=== PATIENT | male | born 1950 | race Caucasian/White ===

== ENCOUNTER 2017-05-29 01:01 | Inpatient (IN) | payer OTHER ==
[2017-05-29] VITALS (8 sets, daily range): BP systolic 94–127; BP diastolic 50–85
[~2017-05-29] VITALS: Ht 193 cm; Wt 107.7 kg
[~2017-05-29 01:01] MED LIST: CETIRIZINE10 MG PO; DELTASONE20 M1 PO; FLUTICASON0.05 MG/Ac NAS; PROVENTIL0.09 MG/A1 INH
[2017-05-29 01:30] LABS: BASO % 0.4 % (0.0-1.0); EOS # 0.2 10*3/uL (0.0-0.4); EOS % 2.5 % (1.0-4.0); HEMATOCRIT 47.1 % (42.0-52.0); LYMPH # 1.4 10*3/uL (1.3-4.4); LYMPH % 18.4 % (27.0-41.0); MEAN CELL VOLUME 93.6 fl (80.0-94.0); MEAN CORPUSCULAR HGB 31.8 pg (27.0-31.0); MEAN PLATELET VOLUME 9.9 fl (9.6-12.3); MONO # 0.5 10*3/uL (0.1-1.0); NEUT # 5.4 10*3/uL (2.3-7.9); NEUT % 71.6 % (47.0-73.0); PLATELET COUNT AUTOMATED 182 10*3/uL (130-400); RED BLOOD COUNT 5.03 10*6/uL (4.50-5.90); RED CELL DISTRI WIDTH 13.5 % (0-14.5); WHITE BLOOD COUNT 7.6 10*3/uL (4.8-10.8)
[2017-05-29 01:49] LABS: ALBUMIN 3.4 gm/dl (3.1-4.5); ALKALINE PHOSPHATASE 98 U/L (45-117); BUN 25 mg/dl (7-24); CHLORIDE 108 mmol/L (98-107); CREATININE 1.22 mg/dL (0.70-1.30); MAGNESIUM 2.2 mg/dL (1.5-2.1); POTASSIUM 4.3 mmol/L (3.5-5.1); SGOT/AST 18 IU/L (3-35); SGPT/ALT 26 U/L (12-78); SODIUM 142 mmol/L (136-145); TOTAL PROTEIN 7.6 gm/dL (6.4-8.2); TROPONIN I < 0.015 ng/ml (<0.045)
--- NOTE | 2017-05-29 04:13 | NUR ---
PATIENT ARRIVED TO FLOOR FROM ER CO OF SHORTNESS OFBREATH AND A PRODUCTIVE COUGH. PATIENT ORIENTED TO ROOM AND CALL LIGHT/ DENIES ANY PAIN AT THIS TIME SEE SHIFT ASSESSMENT. MEDICATIONS REVIEWED WITH PATIENT AND ANOTHER RN AND SENT TO INTERNET SALESPERSON
--- NOTE | 2017-05-29 04:29 | NUR ---
CALLED DR RODRIGUEZ MADE HIM AWARE OF PATIENT BEING ADMITTED TO FLOOR AND MEDICATIONS ARE REVIEWED AND CORRECT
[2017-05-29 06:21] LABS: HEMATOCRIT 43.6 % (42.0-52.0); HEMOGLOBIN 14.7 g/dl (14.0-18.0); MEAN CELL VOLUME 94.8 fl (80.0-94.0); MEAN CORPUSCULAR HGB CONC 33.7 g/dl (33.0-37.0); MEAN PLATELET VOLUME 9.9 fl (9.6-12.3); PLATELET COUNT AUTOMATED 170 10*3/uL (130-400); RED CELL DISTRI WIDTH 13.5 % (0-14.5); WHITE BLOOD COUNT 6.1 10*3/uL (4.8-10.8)
[2017-05-29 06:43] LABS: ACT PARTIAL THROMBO TIME 23.3 SECONDS (20.8-31.5)
[2017-05-29 06:53] LABS: ALBUMIN 3.3 gm/dl (3.1-4.5); ALKALINE PHOSPHATASE 86 U/L (45-117); BUN 23 mg/dl (7-24); CHLORIDE 109 mmol/L (98-107); CHOLESTEROL 123 mg/dL (<200); CREATININE 1.16 mg/dL (0.70-1.30); FREE T4 1.09 ng/dl (0.76-1.46); HDL CHOLESTEROL 38 mg/dl (40-60); LDL CHOLESTEROL 74 mg/dL (9-159); MAGNESIUM 2.1 mg/dL (1.5-2.1); PHOSPHOROUS 2.2 mg/dL (2.5-4.9); POTASSIUM 4.2 mmol/L (3.5-5.1); SGOT/AST 18 IU/L (3-35); SGPT/ALT 23 U/L (12-78); SODIUM 141 mmol/L (136-145); TOTAL PROTEIN 6.9 gm/dL (6.4-8.2); TRIGLYCERIDES 55 mg/dl (<150); VLDL CHOLESTEROL 11 mg/dL (6-40)
[2017-05-29 06:59] LABS: THYROID STIM HORMONE (HS) 0.426 uIU/ml (0.358-4.75)
[2017-05-29 07:05] LABS: TOTAL CELLS COUNTED 100 #CELLS
[2017-05-29 07:06] LABS: PLATELET SUFFICIENCY NORMAL (NORMAL)
[2017-05-29 08:03] LABS: VITAMIN D, 25-HYDROXY 18.1 ng/mL (30-100)
--- NOTE | 2017-05-29 08:30 | NUR ---
Patient resting quietly with no c/o discomfort. Respirations easy and regular. Vital signs stable. No overt distress. MOHSEN MCCABE R
--- NOTE | 2017-05-29 16:24 | NUR ---
[facility] MED[facility] CARDIZEM AND COUMADIN GIVEN.
[2017-05-30] VITALS: BP 105/66
[2017-05-30 06:00] VITALS: BP 105/66
[2017-05-30 08:00] VITALS: BP 114/74
[2017-05-30 14:00] VITALS: BP 119/94
[2017-05-30 16:00] VITALS: BP 116/66
--- NOTE | 2017-05-30 17:55 | NUR ---
ASSESSED FOR HOME O2 FOLLOWS: SAT 95% WITH 2L/M NC APPLIED HR 88 BP 116/74 SAT 92% AT REST ON RA, OFF O2 X 20 MINUTES SAT 88% RA DURING AMBULATION SAT 88% WITH 2L/M NC APPLIED DURING AMBULATION SAT 91-92% WITH 3L/M NC APPLIED DURING AMBULATION SAT 94% WITH 3L/M NC APPLIED DURING REST AFTER AMBULATION X 2-3 MIN. SAT 95% RA DURING RECOVERY (REST) HR 99 THEN 80, BP 128/96 PT WALKED ONE TOTAL LAP AROUND 5 E. SLIGHT SOB NOTED. RN NOTIFIED.
[2017-05-30 20:00] VITALS: BP 108/66
[2017-05-31] VITALS: BP 111/78
[2017-05-31 06:15] VITALS: BP 110/80
[2017-05-31 08:00] VITALS: BP 110/64
[2017-05-31] MEDS ORDERED: DILTIAZEM CD240 MG PO (11:29)
[2017-05-31] MEDS ORDERED: PREDNISONE10 MG PO (11:29)
[2017-05-31] MEDS ORDERED: LEVOFLOXACIN500 MG PO (11:29)
[2017-05-31] MEDS ORDERED: XARE20MG PO (11:29)
--- NOTE | 2017-05-31 12:14 | NUR ---
PATIENT TO BE DISCHARGED TO HOME.
--- NOTE | 2017-05-31 14:30 | NUR ---
PATIENT NOW CANNOT GO HOME BECAUSE HOME O2 CANNOT BE SET UP TILL TOMORROW.
--- NOTE | 2017-05-31 16:27 | NUR ---
DR. ROMERO AND KNITTING MACHINE FIXER HEAD AWARE OF AMA.
--- NOTE | 2017-05-31 16:27 | NUR ---
PATIENT NOW SIGNING AMA.
--- NOTE | 2017-05-31 17:14 | NUR ---
PATIENT RECIEVED D/C INSTRUCTIONS AND FLU SHOT BUT STILL LEFT AMA.
== END 2017-05-31 17:14 | disposition left against medical advice (07) | DRG 191 ==
LOC: ED 01:01 → 5E 02:47 → EDHOLD 02:47 → 5E 03:00
PROVIDERS: Emergency Medicine Emergency Medical Services; Hospitalist; ADMIT Internal Medicine
DX: J44.1 Chronic obstructive pulmonary disease with (acute) exacerbation (principal); E44.0 Moderate protein-calorie malnutrition; E87.8 Other disorders of electrolyte and fluid balance, not elsewhere classified; E83.39 Other disorders of phosphorus metabolism; I48.91 Unspecified atrial fibrillation; C61 Malignant neoplasm of prostate; J30.2 Other seasonal allergic rhinitis; Z79.899 Other long term (current) drug therapy; Z53.21 Procedure and treatment not carried out due to patient leaving prior to being seen by health care provider; R73.03 Prediabetes; Z68.28 Body mass index [BMI] 28.0-28.9, adult

== ENCOUNTER 2018-06-17 05:06 | Emergency (ER) | payer OTHER ==
[~2018-06-17] VITALS: Ht 193 cm; Wt 108.9 kg
--- NOTE | ~2018-06-17 | EKG ---
[place], [place] ELECTROCARDIOGRAM REPORT NAME: PILLO MURDOCK UNIT #: [id number] ROOM: DOCTOR: [facility] DRAFT REPORT BIRTHDATE: [birth year] [facility] Test Date: 2018-06-17 Test Time: 05:32:54 Pat Name: PILLO MURDOCK Department: Room: ER/MS Gender: M Program Management Manager: : [id number] Requested By: AMEYA YUNG Order Number: [id number] Reading MD: Zarina Fernandez MD Measurements Intervals [place] Rate: 120 P: CO: QRS: 153 QRSD: 150 T: -5 QT: 340 QTc: 481 Interpretive Statements Atrial fibrillation Ventricular premature complex RBBB and LPFB Electronically Signed On 06-19-2018 14:44:14 PDT by Zarina Fernandez MD CM:EKGRPT:ELECTROCARDIOGRAM REPORT [id number] AMEYA ESCAMILLA DRAFT REPORT AMEYA YUNG DO
[~2018-06-17 05:06] MED LIST changes: +DILTIAZEM CD240 MG PO; +LEVOFLOXACIN500 MG PO; +PREDNISONE10 MG PO; +XARE20MG PO
[2018-06-17 05:35] LABS: BASO % 0.4 % (0.0-1.0); EOS # 0.1 10*3/uL (0.0-0.4); EOS % 0.9 % (1.0-4.0); HEMATOCRIT 46.2 % (42.0-52.0); LYMPH # 1.1 10*3/uL (1.3-4.4); LYMPH % 16.5 % (27.0-41.0); MEAN CELL VOLUME 92.4 fl (80.0-94.0); MEAN CORPUSCULAR HGB CONC 34.6 g/dl (33.0-37.0); MEAN PLATELET VOLUME 9.4 fl (9.6-12.3); MONO # 0.4 10*3/uL (0.1-1.0); MONO % 6.3 % (3.0-9.0); NEUT % 75.3 % (47.0-73.0); PLATELET COUNT AUTOMATED 186 10*3/uL (130-400); RED CELL DISTRI WIDTH 13.3 % (0-14.5); WHITE BLOOD COUNT 6.7 10*3/uL (4.8-10.8)
[2018-06-17 05:57] LABS: ALBUMIN 3.6 gm/dl (3.1-4.5); ALKALINE PHOSPHATASE 76 U/L (45-117); BUN 26 mg/dl (7-24); CHLORIDE 108 mmol/L (98-107); CREATININE 1.29 mg/dL (0.70-1.30); POTASSIUM 3.7 mmol/L (3.5-5.1); SGOT/AST 15 IU/L (3-35); SGPT/ALT 17 U/L (12-78); SODIUM 142 mmol/L (136-145); TOTAL PROTEIN 7.1 gm/dL (6.4-8.2)
[2018-06-17 06:01] LABS: TROPONIN I < 0.015 ng/ml (<0.045)
[2018-06-17 06:04] LABS: ACT PARTIAL THROMBO TIME 22.1 SECONDS (20.8-31.5)
[2018-06-17] MEDS ORDERED: PREDNISONE50 MG PO (06:12)
[2018-06-17] MEDS ORDERED: LEVAQUIN750 M1 PO (06:12)
== END 2018-06-17 06:29 | disposition home or self-care (01) ==
LOC: ED 05:06
PROVIDERS: Student in an Organized Health Care Education/Training Program
DX: J44.1 Chronic obstructive pulmonary disease with (acute) exacerbation (principal); R73.03 Prediabetes; I48.91 Unspecified atrial fibrillation; Z87.891 Personal history of nicotine dependence

== ENCOUNTER 2019-09-06 03:20 | Emergency (ER) | payer MEDICARE ==
[~2019-09-06] VITALS: Wt 111.1 kg
[~2019-09-06 03:20] MED LIST changes: +LEVAQUIN750 M1 PO; +PREDNISONE50 MG PO
[2019-09-06 03:42] LABS: BASO % 0.3 % (0.0-1.0); EOS # 0.1 10*3/uL (0.0-0.4); HEMATOCRIT 48.2 % (42.0-52.0); LYMPH # 0.9 10*3/uL (1.3-4.4); LYMPH % 12.1 % (27.0-41.0); MEAN CORPUSCULAR HGB 31.9 pg (27.0-31.0); MEAN CORPUSCULAR HGB CONC 33.2 g/dl (33.0-37.0); MEAN PLATELET VOLUME 9.9 fl (9.6-12.3); MONO # 0.5 10*3/uL (0.1-1.0); MONO % 6.1 % (3.0-9.0); NEUT # 6.2 10*3/uL (2.3-7.9); NEUT % 80.2 % (47.0-73.0); PLATELET COUNT AUTOMATED 173 10*3/uL (130-400); RED BLOOD COUNT 5.02 10*6/uL (4.50-5.90); RED CELL DISTRI WIDTH 13.2 % (0-14.5); WHITE BLOOD COUNT 7.8 10*3/uL (4.8-10.8)
[2019-09-06 03:52] LABS: ACT PARTIAL THROMBO TIME 25.7 SECONDS (20.0-32.1); INTERNATIONAL NORM RATIO 0.9 (2.0-3.5)
[2019-09-06 04:03] LABS: ALBUMIN 3.8 gm/dl (3.1-4.5); ALKALINE PHOSPHATASE 72 U/L (45-117); BUN 31 mg/dl (7-24); CHLORIDE 111 mmol/L (98-107); CREATININE 1.21 mg/dL (0.70-1.30); SGOT/AST 9 IU/L (3-35); SGPT/ALT 18 U/L (12-78); SODIUM 141 mmol/L (136-145); TOTAL PROTEIN 6.9 gm/dL (6.4-8.2)
[2019-09-06 04:05] LABS: TROPONIN I < 0.015 ng/ml (<0.045)
[2019-09-06] MEDS ORDERED: 'zithromax250 MG PO (04:22)
[2019-09-06] MEDS ORDERED: MEDROL DOSEPAK4 MG PO (04:22)
== END 2019-09-06 04:38 | disposition home or self-care (01) ==
LOC: ED 03:20
PROVIDERS: Emergency Medicine
DX: J44.9 Chronic obstructive pulmonary disease, unspecified (principal); K21.9 Gastro-esophageal reflux disease without esophagitis; I48.91 Unspecified atrial fibrillation; F17.200 Nicotine dependence, unspecified, uncomplicated; Z79.2 Long term (current) use of antibiotics; Z79.899 Other long term (current) drug therapy

== ENCOUNTER 2019-10-16 07:02 | Emergency (ER) | payer MEDICARE ==
[~2019-10-16] VITALS: Ht 193 cm; Wt 106.6 kg
[~2019-10-16 07:02] MED LIST changes: +'zithromax250 MG PO; +MEDROL DOSEPAK4 MG PO
[2019-10-16 07:30] LABS: BASO % 0.1 % (0.0-1.0); EOS % 0.6 % (1.0-4.0); HEMATOCRIT 47.5 % (42.0-52.0); HEMOGLOBIN 15.8 g/dl (14.0-18.0); LYMPH % 14.6 % (27.0-41.0); MEAN CELL VOLUME 95.4 fl (80.0-94.0); MEAN CORPUSCULAR HGB 31.7 pg (27.0-31.0); MEAN CORPUSCULAR HGB CONC 33.3 g/dl (33.0-37.0); MEAN PLATELET VOLUME 9.5 fl (9.6-12.3); MONO # 0.6 10*3/uL (0.1-1.0); MONO % 8.2 % (3.0-9.0); NEUT # 5.1 10*3/uL (2.3-7.9); NEUT % 76.2 % (47.0-73.0); PLATELET COUNT AUTOMATED 163 10*3/uL (130-400); RED BLOOD COUNT 4.98 10*6/uL (4.50-5.90); RED CELL DISTRI WIDTH 13.6 % (0-14.5); WHITE BLOOD COUNT 6.7 10*3/uL (4.8-10.8)
[2019-10-16 07:41] LABS: ACT PARTIAL THROMBO TIME 27.1 SECONDS (20.0-32.1); INTERNATIONAL NORM RATIO 0.9 (2.0-3.5)
[2019-10-16] MEDS ORDERED: ECPIRIN325 MG PO (07:43)
[2019-10-16] MEDS ORDERED: CETIRIZINE HYDR10 MG PO (07:43)
[2019-10-16 07:46] LABS: ALBUMIN 3.7 gm/dl (3.1-4.5); ALKALINE PHOSPHATASE 91 U/L (45-117); BUN 19 mg/dl (7-24); CHLORIDE 108 mmol/L (98-107); CREATININE 1.18 mg/dL (0.70-1.30); SGOT/AST 10 IU/L (3-35); SGPT/ALT 23 U/L (12-78); SODIUM 140 mmol/L (136-145); TOTAL PROTEIN 7.2 gm/dL (6.4-8.2); TROPONIN I 0.017 ng/ml (<0.045)
[2019-10-16] MEDS ORDERED: ALLERGY RELIE15.8 ML NAS (07:46)
== END 2019-10-16 08:13 | disposition home or self-care (01) ==
LOC: ED 07:02
PROVIDERS: Emergency Medicine
DX: J44.9 Chronic obstructive pulmonary disease, unspecified (principal); I48.91 Unspecified atrial fibrillation; K21.9 Gastro-esophageal reflux disease without esophagitis; F17.200 Nicotine dependence, unspecified, uncomplicated; Z79.899 Other long term (current) drug therapy; Z79.82 Long term (current) use of aspirin; Z98.61 Coronary angioplasty status

== ENCOUNTER 2021-03-15 17:03 | Emergency (ER) | payer OTHER, MEDICARE ==
[~2021-03-15] VITALS: Ht 193 cm; Wt 106.6 kg
[~2021-03-15 17:03] MED LIST changes: +ALLERGY RELIE15.8 ML NAS; +CETIRIZINE HYDR10 MG PO; +ECPIRIN325 MG PO
[2021-03-15 18:27] LABS: BASO % 0.3 % (0.0-1.0); EOS % 0.3 % (1.0-4.0); HEMATOCRIT 42.6 % (42.0-52.0); LYMPH % 14.8 % (27.0-41.0); MEAN CORPUSCULAR HGB 31.3 pg (27.0-31.0); MEAN CORPUSCULAR HGB CONC 33.3 g/dl (33.0-37.0); MEAN PLATELET VOLUME 9.5 fl (9.6-12.3); MONO # 0.5 10*3/uL (0.1-1.0); MONO % 7.6 % (3.0-9.0); NEUT % 76.5 % (47.0-73.0); PLATELET COUNT AUTOMATED 185 10*3/uL (130-400); RED BLOOD COUNT 4.53 10*6/uL (4.50-5.90); RED CELL DISTRI WIDTH 13.9 % (0-14.5); WHITE BLOOD COUNT 6.6 10*3/uL (4.8-10.8)
[2021-03-15 18:46] LABS: ALBUMIN 3.5 gm/dl (3.1-4.5); BUN 19 mg/dl (7-24); CHLORIDE 109 mmol/L (98-107); CREATININE 1.16 mg/dL (0.70-1.30); POTASSIUM 3.7 mmol/L (3.5-5.1); SGOT/AST 9 IU/L (3-35); SODIUM 141 mmol/L (136-145)
[2021-03-15 18:50] LABS: ALKALINE PHOSPHATASE 61 U/L (45-117); SGPT/ALT 15 U/L (12-78); TOTAL PROTEIN 6.5 gm/dL (6.4-8.2); TROPONIN I 0.034 ng/ml (<0.045)
== END 2021-03-15 19:06 | disposition home or self-care (01) ==
LOC: ED 17:03
PROVIDERS: Emergency Medicine
DX: J20.9 Acute bronchitis, unspecified (principal); J44.0 Chronic obstructive pulmonary disease with (acute) lower respiratory infection; Z79.899 Other long term (current) drug therapy; Z79.82 Long term (current) use of aspirin; Z98.61 Coronary angioplasty status; Z87.891 Personal history of nicotine dependence

== ENCOUNTER 2021-05-22 10:43 | Emergency (ER) | payer OTHER ==
[~2021-05-22] VITALS: Ht 193 cm; Wt 106.6 kg
[2021-05-22 11:09] VITALS: BP 95/46
[2021-05-22 11:37] LABS: BASO % 0.4 % (0.0-1.0); EOS # 0.1 10*3/uL (0.0-0.4); EOS % 2.4 % (1.0-4.0); LYMPH # 1.1 10*3/uL (1.3-4.4); LYMPH % 20.9 % (27.0-41.0); MEAN CELL VOLUME 94.4 fl (80.0-94.0); MEAN CORPUSCULAR HGB 31.6 pg (27.0-31.0); MEAN CORPUSCULAR HGB CONC 33.5 g/dl (33.0-37.0); MEAN PLATELET VOLUME 9.3 fl (9.6-12.3); MONO # 0.4 10*3/uL (0.1-1.0); MONO % 7.5 % (3.0-9.0); NEUT # 3.7 10*3/uL (2.3-7.9); NEUT % 68.6 % (47.0-73.0); PLATELET COUNT AUTOMATED 203 10*3/uL (130-400); RED BLOOD COUNT 5.19 10*6/uL (4.50-5.90); RED CELL DISTRI WIDTH 13.5 % (0-14.5); WHITE BLOOD COUNT 5.3 10*3/uL (4.8-10.8)
[2021-05-22 11:49] LABS: ACT PARTIAL THROMBO TIME 26.7 SECONDS (20.0-32.1)
[2021-05-22 12:02] LABS: ALBUMIN 3.8 gm/dl (3.1-4.5); ALKALINE PHOSPHATASE 94 U/L (45-117); BUN 20 mg/dl (7-24); CHLORIDE 107 mmol/L (98-107); CREATININE 1.01 mg/dL (0.70-1.30); POTASSIUM 4.2 mmol/L (3.5-5.1); SGOT/AST 9 IU/L (3-35); SGPT/ALT 20 U/L (12-78); SODIUM 140 mmol/L (136-145); TOTAL PROTEIN 7.4 gm/dL (6.4-8.2)
[2021-05-22 12:08] LABS: TROPONIN I < 0.015 ng/ml (<0.045)
[2021-05-22 13:11] LABS: CHOLESTEROL 165 mg/dL (<200); LDL CHOLESTEROL 95 mg/dL (9-159); TRIGLYCERIDES 73 mg/dl (<150)
== END 2021-05-22 20:31 | disposition admitted as inpatient to this hospital (09) ==
LOC: ED 10:43 → EDHOLD 13:00 → ED 13:00
PROVIDERS: Emergency Medicine
DX: R20.0 Anesthesia of skin (principal); Z20.822 Contact with and (suspected) exposure to COVID-19; R42 Dizziness and giddiness; M62.81 Muscle weakness (generalized); I48.20 Chronic atrial fibrillation, unspecified; J44.1 Chronic obstructive pulmonary disease with (acute) exacerbation; Z85.46 Personal history of malignant neoplasm of prostate; Z79.82 Long term (current) use of aspirin; Z79.899 Other long term (current) drug therapy; Z87.891 Personal history of nicotine dependence

== ENCOUNTER 2021-08-15 14:54 | Emergency (ER) | payer OTHER ==
[~2021-08-15] VITALS: Wt 108.9 kg
[2021-08-15 16:10] LABS: BASO % 0.5 % (0.0-1.0); EOS # 0.1 10*3/uL (0.0-0.4); EOS % 2.5 % (1.0-4.0); LYMPH # 1.2 10*3/uL (1.3-4.4); LYMPH % 21.5 % (27.0-41.0); MEAN CELL VOLUME 93.5 fl (80.0-94.0); MEAN CORPUSCULAR HGB 31.7 pg (27.0-31.0); MEAN CORPUSCULAR HGB CONC 33.9 g/dl (33.0-37.0); MEAN PLATELET VOLUME 9.4 fl (9.6-12.3); MONO # 0.5 10*3/uL (0.1-1.0); MONO % 8.7 % (3.0-9.0); NEUT # 3.7 10*3/uL (2.3-7.9); NEUT % 66.3 % (47.0-73.0); PLATELET COUNT AUTOMATED 172 10*3/uL (130-400); RED BLOOD COUNT 4.92 10*6/uL (4.50-5.90); RED CELL DISTRI WIDTH 13.4 % (0-14.5); WHITE BLOOD COUNT 5.6 10*3/uL (4.8-10.8)
[2021-08-15 16:21] LABS: ACT PARTIAL THROMBO TIME 28.9 SECONDS (20.0-32.1); INTERNATIONAL NORM RATIO 1.1 (2.0-3.5)
[2021-08-15 16:28] LABS: ALBUMIN 3.3 gm/dl (3.1-4.5); ALKALINE PHOSPHATASE 83 U/L (45-117); BUN 20 mg/dl (7-24); CHLORIDE 110 mmol/L (98-107); CPK 96 U/L (39-308); CREATININE 1.11 mg/dL (0.70-1.30); POTASSIUM 4.3 mmol/L (3.5-5.1); SGOT/AST 12 IU/L (3-35); SGPT/ALT 21 U/L (12-78); SODIUM 142 mmol/L (136-145); TOTAL PROTEIN 6.7 gm/dL (6.4-8.2)
[2021-08-15] MEDS ORDERED: VIBRAMYCIN100 MG PO (17:36)
[2021-08-15] MEDS ORDERED: PREDNISONE20 M1 PO (17:36)
== END 2021-08-15 17:44 | disposition home or self-care (01) ==
LOC: ED 14:54
PROVIDERS: Emergency Medicine
DX: J44.1 Chronic obstructive pulmonary disease with (acute) exacerbation (principal); Z20.822 Contact with and (suspected) exposure to COVID-19; I10 Essential (primary) hypertension; E78.00 Pure hypercholesterolemia, unspecified; Z79.899 Other long term (current) drug therapy; Z79.82 Long term (current) use of aspirin; Z87.891 Personal history of nicotine dependence

== ENCOUNTER 2021-09-18 17:30 | Emergency (ER) | payer OTHER ==
[~2021-09-18] VITALS: Ht 193 cm; Wt 104.3 kg
[~2021-09-18 17:30] MED LIST changes: +PREDNISONE20 M1 PO; +VIBRAMYCIN100 MG PO
[2021-09-18 18:00] LABS: BASO % 0.2 % (0.0-1.0); HEMATOCRIT 46.4 % (42.0-52.0); LYMPH # 0.4 10*3/uL (1.3-4.4); LYMPH % 5.4 % (27.0-41.0); MEAN CORPUSCULAR HGB 31.7 pg (27.0-31.0); MEAN CORPUSCULAR HGB CONC 34.1 g/dl (33.0-37.0); MEAN PLATELET VOLUME 9.8 fl (9.6-12.3); MONO # 0.6 10*3/uL (0.1-1.0); MONO % 9.2 % (3.0-9.0); NEUT # 5.5 10*3/uL (2.3-7.9); NEUT % 84.7 % (47.0-73.0); PLATELET COUNT AUTOMATED 139 10*3/uL (130-400); RED BLOOD COUNT 4.99 10*6/uL (4.50-5.90); RED CELL DISTRI WIDTH 13.9 % (0-14.5); WHITE BLOOD COUNT 6.5 10*3/uL (4.8-10.8)
[2021-09-18 18:15] LABS: ALBUMIN 3.2 gm/dl (3.1-4.5); ALKALINE PHOSPHATASE 81 U/L (45-117); BUN 26 mg/dl (7-24); CHLORIDE 107 mmol/L (98-107); CREATININE 1.31 mg/dL (0.70-1.30); POTASSIUM 3.6 mmol/L (3.5-5.1); SGOT/AST 37 IU/L (3-35); SGPT/ALT 26 U/L (12-78); SODIUM 139 mmol/L (136-145)
== END 2021-09-18 21:21 | disposition home or self-care (01) ==
LOC: ED 17:30
PROVIDERS: Student in an Organized Health Care Education/Training Program
DX: N17.9 Acute kidney failure, unspecified (principal); R42 Dizziness and giddiness; R51.9 Headache, unspecified; J44.9 Chronic obstructive pulmonary disease, unspecified; K21.9 Gastro-esophageal reflux disease without esophagitis; I48.91 Unspecified atrial fibrillation; Z79.899 Other long term (current) drug therapy; Z79.82 Long term (current) use of aspirin; Z87.891 Personal history of nicotine dependence

== ENCOUNTER 2021-10-27 14:09 | Emergency (ER) | payer OTHER ==
[~2021-10-27] VITALS: Wt 104.3 kg
[2021-10-27] MEDS ORDERED: HYDROCODONE-AC1 EAC1 PO (15:25)
[2021-10-27] MEDS ORDERED: SILVADENE,SSD C50 GM T (15:25)
[2021-10-27] MEDS ORDERED: SEPTDS PO (15:25)
== END 2021-10-27 16:00 | disposition home or self-care (01) ==
LOC: ED 14:09
DX: T24.201A Burn of second degree of unspecified site of right lower limb, except ankle and foot, initial encounter (principal); Z87.891 Personal history of nicotine dependence; Z79.899 Other long term (current) drug therapy; Z79.82 Long term (current) use of aspirin; X12.XXXA Contact with other hot fluids, initial encounter; Y93.89 Activity, other specified; Y92.89 Other specified places as the place of occurrence of the external cause; Y99.8 Other external cause status

== ENCOUNTER 2022-01-23 04:17 | Emergency (ER) | payer OTHER ==
[~2022-01-23 04:17] MED LIST changes: +HYDROCODONE-AC1 EAC1 PO; +SEPTDS PO; +SILVADENE,SSD C50 GM T
[2022-01-23] MEDS ORDERED: STIOLTO RESPIMAT4 GM INH (04:42)
[2022-01-23] MEDS ORDERED: METOPROLOL TART75 MG PO (04:42)
[2022-01-23] MEDS ORDERED: LIPITOR40 MG PO (04:43)
[2022-01-23] MEDS ORDERED: ELIQUIS5 M1 PO (04:43)
[2022-01-23 05:41] LABS: ALKALINE PHOSPHATASE 88 U/L (45-117); BUN 20 mg/dl (7-24); CHLORIDE 108 mmol/L (98-107); LIPASE 47 U/L (73-393); POTASSIUM 3.7 mmol/L (3.5-5.1); SGOT/AST 8 IU/L (3-35); SGPT/ALT 19 U/L (12-78); SODIUM 139 mmol/L (136-145); TOTAL PROTEIN 6.2 gm/dL (6.4-8.2)
[2022-01-23 06:02] LABS: BASO % 0.4 % (0.0-1.0); EOS # 0.1 10*3/uL (0.0-0.4); EOS % 1.8 % (1.0-4.0); HEMATOCRIT 41.8 % (42.0-52.0); LYMPH # 0.8 10*3/uL (1.3-4.4); LYMPH % 13.6 % (27.0-41.0); MEAN CELL VOLUME 93.3 fl (80.0-94.0); MEAN CORPUSCULAR HGB CONC 33.3 g/dl (33.0-37.0); MEAN PLATELET VOLUME 10.3 fl (9.6-12.3); MONO # 0.5 10*3/uL (0.1-1.0); MONO % 8.3 % (3.0-9.0); NEUT # 4.3 10*3/uL (2.3-7.9); NEUT % 75.5 % (47.0-73.0); PLATELET COUNT AUTOMATED 143 10*3/uL (130-400); RED BLOOD COUNT 4.48 10*6/uL (4.50-5.90); RED CELL DISTRI WIDTH 13.7 % (0-14.5); WHITE BLOOD COUNT 5.7 10*3/uL (4.8-10.8)
[2022-01-23] MEDS ORDERED: AVPAK AZITHROM250 MG PO (08:07)
[2022-01-23] MEDS ORDERED: PREDNISONE50 MG PO (08:07)
== END 2022-01-23 08:08 | disposition home or self-care (01) ==
LOC: ED 04:17
PROVIDERS: Emergency Medicine
DX: J44.1 Chronic obstructive pulmonary disease with (acute) exacerbation (principal); I48.91 Unspecified atrial fibrillation; E78.00 Pure hypercholesterolemia, unspecified; Z79.899 Other long term (current) drug therapy; Z79.82 Long term (current) use of aspirin

== ENCOUNTER 2022-03-08 18:52 | Emergency (ER) | payer OTHER ==
[~2022-03-08 18:52] MED LIST changes: +AVPAK AZITHROM250 MG PO; +ELIQUIS5 M1 PO; +LIPITOR40 MG PO; +METOPROLOL TART75 MG PO; +STIOLTO RESPIMAT4 GM INH
[2022-03-08 19:50] LABS: BASO % 0.3 % (0.0-1.0); EOS # 0.2 10*3/uL (0.0-0.4); EOS % 3.1 % (1.0-4.0); LYMPH # 1.4 10*3/uL (1.3-4.4); LYMPH % 23.5 % (27.0-41.0); MEAN CELL VOLUME 91.5 fl (80.0-94.0); MEAN CORPUSCULAR HGB 31.4 pg (27.0-31.0); MEAN CORPUSCULAR HGB CONC 34.3 g/dl (33.0-37.0); MEAN PLATELET VOLUME 9.6 fl (9.6-12.3); MONO # 0.5 10*3/uL (0.1-1.0); MONO % 8.5 % (3.0-9.0); NEUT # 3.7 10*3/uL (2.3-7.9); NEUT % 64.4 % (47.0-73.0); PLATELET COUNT AUTOMATED 151 10*3/uL (130-400); RED BLOOD COUNT 4.81 10*6/uL (4.50-5.90); RED CELL DISTRI WIDTH 13.2 % (0-14.5); WHITE BLOOD COUNT 5.8 10*3/uL (4.8-10.8)
[2022-03-08 20:06] LABS: ALKALINE PHOSPHATASE 91 U/L (45-117); BUN 26 mg/dl (7-24); CHLORIDE 112 mmol/L (98-107); CREATININE 0.97 mg/dL (0.70-1.30); SGOT/AST 14 IU/L (3-35); SGPT/ALT 24 U/L (12-78); SODIUM 141 mmol/L (136-145); TOTAL PROTEIN 6.3 gm/dL (6.4-8.2)
== END 2022-03-08 23:01 | disposition home or self-care (01) ==
LOC: ED 18:52
PROVIDERS: Internal Medicine
DX: I95.1 Orthostatic hypotension (principal); N17.9 Acute kidney failure, unspecified; Z79.899 Other long term (current) drug therapy; Z79.82 Long term (current) use of aspirin; Z87.891 Personal history of nicotine dependence

== ENCOUNTER 2022-08-02 08:35 | Emergency (ER) | payer OTHER ==
[~2022-08-02] VITALS: Ht 193 cm; Wt 106.6 kg
[~2022-08-02 08:35] MED LIST changes: -SUNMARK MUCUS600 MG PO
[2022-08-02 09:47] LABS: BASO % 0.4 % (0.0-1.0); EOS # 0.1 10*3/uL (0.0-0.4); EOS % 1.4 % (1.0-4.0); HEMATOCRIT 42.8 % (42.0-52.0); LYMPH # 0.7 10*3/uL (1.3-4.4); LYMPH % 11.4 % (27.0-41.0); MEAN CELL VOLUME 97.1 fl (80.0-94.0); MEAN CORPUSCULAR HGB 31.7 pg (27.0-31.0); MEAN CORPUSCULAR HGB CONC 32.7 g/dl (33.0-37.0); MEAN PLATELET VOLUME 9.2 fl (9.6-12.3); MONO # 0.6 10*3/uL (0.1-1.0); MONO % 11.1 % (3.0-9.0); NEUT # 4.3 10*3/uL (2.3-7.9); NEUT % 75.3 % (47.0-73.0); PLATELET COUNT AUTOMATED 148 10*3/uL (130-400); RED BLOOD COUNT 4.41 10*6/uL (4.50-5.90); RED CELL DISTRI WIDTH 15.9 % (0-14.5); WHITE BLOOD COUNT 5.7 10*3/uL (4.8-10.8)
[2022-08-02 09:59] LABS: ACT PARTIAL THROMBO TIME 31.3 SECONDS (20.0-32.1)
[2022-08-02 10:18] LABS: ALKALINE PHOSPHATASE 100 U/L (45-117); BUN 17 mg/dl (7-24); CHLORIDE 110 mmol/L (98-107); CREATININE 0.89 mg/dL (0.70-1.30); LIPASE 60 U/L (73-393); POTASSIUM 3.6 mmol/L (3.5-5.1); SGPT/ALT 27 U/L (12-78); SODIUM 142 mmol/L (136-145)
[2022-08-02] MEDS ORDERED: SUNMARK MUCUS600 MG PO (11:43)
[2022-08-06] MEDS ORDERED: LEVOFLOXACIN750 M2 PO (13:35)
[2022-08-06] MEDS ORDERED: PREDNISONE50 MG PO (13:35)
[2022-08-06] MEDS ORDERED: PROVENTIL HFA6.7 GM INH (13:36)
== END 2022-08-02 13:17 | disposition home or self-care (01) ==
LOC: ED 08:35
PROVIDERS: Family Medicine
DX: T24.031A Burn of unspecified degree of right lower leg, initial encounter (principal); I89.0 Lymphedema, not elsewhere classified; L89.502 Pressure ulcer of unspecified ankle, stage 2; Z95.818 Presence of other cardiac implants and grafts; Z72.0 Tobacco use

== ENCOUNTER → 2022-08-02 | Outpatient (CLI) | payer MEDICARE ==
[~2022-08-02] MED LIST changes: +AMIODARONE HYD200 MG PO; +MUCINEX ER600 MG PO; +SUNMARK MUCUS600 MG PO; +VITAMIN D350 MC2 PO
== END ==
LOC: WOUNDCARE 14:01
PROVIDERS: ATTEND Nurse Practitioner Family
DX: Z53.21 Procedure and treatment not carried out due to patient leaving prior to being seen by health care provider (principal)

== ENCOUNTER → 2022-08-05 | Outpatient (CLI) | payer MEDICARE ==
[~2022-08-05] MED LIST changes: +LEVOFLOXACIN750 M2 PO; +PROVENTIL HFA6.7 GM INH; +SUNMARK MUCUS600 MG PO
== END ==
LOC: WOUNDCARE 01:38
PROVIDERS: ATTEND Nurse Practitioner Family
DX: Z53.21 Procedure and treatment not carried out due to patient leaving prior to being seen by health care provider (principal)

== ENCOUNTER → 2022-08-09 | Outpatient (CLI) | payer MEDICARE | END | disposition home or self-care (01) | LOC: WOUNDCARE 03:14 | PROVIDERS: ATTEND Nurse Practitioner Family | DX: L97.822 Non-pressure chronic ulcer of other part of left lower leg with fat layer exposed (principal); L89.323 Pressure ulcer of left buttock, stage 3; T24.301A Burn of third degree of unspecified site of right lower limb, except ankle and foot, initial encounter; T31.0 Burns involving less than 10% of body surface; I87.8 Other specified disorders of veins; I50.20 Unspecified systolic (congestive) heart failure; I73.9 Peripheral vascular disease, unspecified; X08.8XXA Exposure to other specified smoke, fire and flames, initial encounter; Y93.89 Activity, other specified; Y92.89 Other specified places as the place of occurrence of the external cause; Y99.8 Other external cause status ==

== ENCOUNTER 2022-12-11 15:26 | Emergency (ER) | payer OTHER ==
[~2022-12-11] VITALS: Ht 193 cm; Wt 108.9 kg
[2022-12-11] MEDS ORDERED: ZITHROMAX250 MG PO (18:26)
[2022-12-11] MEDS ORDERED: Ipratropium Brom3 ML INH (18:26)
[2022-12-11] MEDS ORDERED: PREDNISONE10 MG PO (18:26)
== END 2022-12-11 19:32 | disposition home or self-care (01) ==
LOC: ED 15:26
DX: J44.9 Chronic obstructive pulmonary disease, unspecified (principal); I48.91 Unspecified atrial fibrillation; Z86.73 Personal history of transient ischemic attack (TIA), and cerebral infarction without residual deficits; K21.9 Gastro-esophageal reflux disease without esophagitis; I50.9 Heart failure, unspecified; Z98.890 Other specified postprocedural states; F17.200 Nicotine dependence, unspecified, uncomplicated

== ENCOUNTER 2022-12-15 13:10 | Emergency (ER) | payer OTHER ==
[~2022-12-15] VITALS: Wt 108.9 kg
[~2022-12-15 13:10] MED LIST changes: +Ipratropium Brom3 ML INH; +ZITHROMAX250 MG PO
[2022-12-15 14:05] LABS: BASO % 0.5 % (0.0-1.0); EOS # 0.1 10*3/uL (0.0-0.4); HEMATOCRIT 40.5 % (42.0-52.0); LYMPH # 1.1 10*3/uL (1.3-4.4); MEAN CELL VOLUME 93.1 fl (80.0-94.0); MEAN CORPUSCULAR HGB 31.5 pg (27.0-31.0); MEAN CORPUSCULAR HGB CONC 33.8 g/dl (33.0-37.0); MEAN PLATELET VOLUME 9.1 fl (9.6-12.3); MONO # 0.5 10*3/uL (0.1-1.0); MONO % 7.2 % (3.0-9.0); NEUT # 4.9 10*3/uL (2.3-7.9); PLATELET COUNT AUTOMATED 228 10*3/uL (130-400); RED BLOOD COUNT 4.35 10*6/uL (4.50-5.90); RED CELL DISTRI WIDTH 14.4 % (0-14.5); WHITE BLOOD COUNT 6.6 10*3/uL (4.8-10.8)
[2022-12-15 14:28] LABS: ALKALINE PHOSPHATASE 62 U/L (46-116); BUN 20 mg/dl (9-23); CHLORIDE 107 mmol/L (98-107); POTASSIUM 3.9 mmol/L (3.4-5.1); SGPT/ALT 21 U/L (10-49)
[2022-12-17] MEDS ORDERED: METOPROLOL SUCC50 M1 PO (07:45)
[2022-12-17] MEDS ORDERED: CETIRIZINE10 MG PO (07:45)
[2022-12-17] MEDS ORDERED: LIPITOR80 MG PO (07:45)
[2022-12-17] MEDS ORDERED: STRIVERDI RESPIM4 GM INH (07:46)
[2022-12-17] MEDS ORDERED: PROVENTIL HFA6.7 GM INH (07:47)
[2022-12-17] MEDS ORDERED: CHILDREN'S FLO5.9 ML INH (07:47)
[2022-12-17] MEDS ORDERED: ALBUTEROL2.5 MG/0.5 INH (18:52)
[2022-12-18] MEDS ORDERED: METOPROLOL SUC100 M1 PO (08:26)
== END 2022-12-15 16:45 | disposition left against medical advice (07) ==
LOC: ED 13:10
PROVIDERS: Emergency Medicine
DX: J44.1 Chronic obstructive pulmonary disease with (acute) exacerbation (principal); Z79.899 Other long term (current) drug therapy; F17.200 Nicotine dependence, unspecified, uncomplicated

== ENCOUNTER 2023-07-10 13:08 | Emergency (ER) | payer OTHER ==
[~2023-07-10] VITALS: Wt 104.3 kg
[~2023-07-10 13:08] MED LIST changes: +ALBUTEROL2.5 MG/0.5 INH; +CHILDREN'S FLO5.9 ML INH; +LIPITOR80 MG PO; +METOPROLOL SUC100 M1 PO; +METOPROLOL SUCC50 M1 PO; +STRIVERDI RESPIM4 GM INH
[2023-07-10 14:00] LABS: BASO % 0.4 % (0.0-1.0); EOS % 0.4 % (1.0-4.0); HEMATOCRIT 44.7 % (42.0-52.0); LYMPH # 0.5 10*3/uL (1.3-4.4); LYMPH % 11.7 % (27.0-41.0); MEAN CELL VOLUME 93.1 fl (80.0-94.0); MEAN CORPUSCULAR HGB 31.7 pg (27.0-31.0); MEAN PLATELET VOLUME 8.9 fl (9.6-12.3); MONO # 0.7 10*3/uL (0.1-1.0); MONO % 16.1 % (3.0-9.0); NEUT # 3.3 10*3/uL (2.3-7.9); NEUT % 71.2 % (47.0-73.0); PLATELET COUNT AUTOMATED 166 10*3/uL (130-400); RED CELL DISTRI WIDTH 14.6 % (0-14.5); WHITE BLOOD COUNT 4.6 10*3/uL (4.8-10.8)
[2023-07-10 14:24] LABS: ALKALINE PHOSPHATASE 94 U/L (46-116); BUN 20 mg/dl (9-23); CHLORIDE 105 mmol/L (98-107); SGPT/ALT 17 U/L (5-49); TOTAL PROTEIN 6.4 gm/dL (6.0-8.0)
== END 2023-07-10 16:12 | disposition home or self-care (01) ==
LOC: ED 13:08
PROVIDERS: Emergency Medicine
DX: J44.1 Chronic obstructive pulmonary disease with (acute) exacerbation (principal); I50.9 Heart failure, unspecified; I11.0 Hypertensive heart disease with heart failure; I48.91 Unspecified atrial fibrillation; K21.9 Gastro-esophageal reflux disease without esophagitis; Z86.718 Personal history of other venous thrombosis and embolism; Z20.822 Contact with and (suspected) exposure to COVID-19; Z95.5 Presence of coronary angioplasty implant and graft; Z98.890 Other specified postprocedural states; F17.200 Nicotine dependence, unspecified, uncomplicated

== ENCOUNTER 2023-07-14 00:14 | Inpatient (IN) | payer OTHER ==
[2023-07-14] VITALS (7 sets, daily range): BP systolic 102–139; BP diastolic 63–78
[~2023-07-14] VITALS: Ht 193 cm; Wt 94.6 kg
[2023-07-14 00:36] LABS: BASO % 0.1 % (0.0-1.0); HEMATOCRIT 45.4 % (42.0-52.0); LYMPH # 0.5 10*3/uL (1.3-4.4); LYMPH % 6.1 % (27.0-41.0); MEAN CELL VOLUME 91.9 fl (80.0-94.0); MEAN CORPUSCULAR HGB 31.6 pg (27.0-31.0); MEAN CORPUSCULAR HGB CONC 34.4 g/dl (33.0-37.0); MEAN PLATELET VOLUME 9.1 fl (9.6-12.3); MONO # 0.6 10*3/uL (0.1-1.0); MONO % 8.1 % (3.0-9.0); NEUT # 6.7 10*3/uL (2.3-7.9); NEUT % 85.3 % (47.0-73.0); PLATELET COUNT AUTOMATED 176 10*3/uL (130-400); RED BLOOD COUNT 4.94 10*6/uL (4.50-5.90); RED CELL DISTRI WIDTH 14.8 % (0-14.5); WHITE BLOOD COUNT 7.9 10*3/uL (4.8-10.8)
[2023-07-14 00:47] LABS: ACT PARTIAL THROMBO TIME 31.8 SECONDS (20.0-32.1)
[2023-07-14 00:58] LABS: ALKALINE PHOSPHATASE 87 U/L (46-116); BUN 20 mg/dl (9-23); CHLORIDE 105 mmol/L (98-107); POTASSIUM 4.3 mmol/L (3.4-5.1); SGPT/ALT 33 U/L (5-49); TOTAL PROTEIN 6.5 gm/dL (6.0-8.0)
[2023-07-14] MEDS ORDERED: DILTIAZEM HCL180 M1 PO (05:51)
[2023-07-14] MEDS ORDERED: DULCOLAX STOOL100 M1 PO (05:52)
[2023-07-14] MEDS ORDERED: FEXOFENADINE H180 M1 PO (05:52)
[2023-07-14] MEDS ORDERED: LASIX20 MG PO (05:53)
[2023-07-14] MEDS ORDERED: ASMANEX HFA13 GM INH (05:54)
[2023-07-14] MEDS ORDERED: NASAL MIST30 ML NAS (05:55)
[2023-07-14] MEDS ORDERED: STRIVERDI RESPIM4 GM INH (05:55)
[2023-07-14] MEDS ORDERED: POTASSIUM CHLO20 ME3 PO (05:56)
[2023-07-14] MEDS ORDERED: ROXICODONE15 MG PO (05:58)
[2023-07-14] MEDS ORDERED: TYLENOL325 M1 PO (05:59)
[2023-07-14] MEDS ORDERED: FLOMAX0.4 MG PO (05:59)
[2023-07-14 06:27] LABS: BASO % 0.1 % (0.0-1.0); HEMATOCRIT 42.6 % (42.0-52.0); LYMPH # 0.4 10*3/uL (1.3-4.4); LYMPH % 3.4 % (27.0-41.0); MEAN CELL VOLUME 92.6 fl (80.0-94.0); MEAN CORPUSCULAR HGB CONC 34.5 g/dl (33.0-37.0); MEAN PLATELET VOLUME 9.5 fl (9.6-12.3); MONO # 0.9 10*3/uL (0.1-1.0); MONO % 7.8 % (3.0-9.0); NEUT # 9.6 10*3/uL (2.3-7.9); PLATELET COUNT AUTOMATED 153 10*3/uL (130-400); RED CELL DISTRI WIDTH 14.9 % (0-14.5); WHITE BLOOD COUNT 10.9 10*3/uL (4.8-10.8)
[2023-07-14 06:57] LABS: BUN 17 mg/dl (9-23); CHLORIDE 106 mmol/L (98-107); CHOLESTEROL 102 mg/dL (<200); LDL CHOLESTEROL 48 mg/dL (9-159); POTASSIUM 4.1 mmol/L (3.4-5.1); TRIGLYCERIDES 81 mg/dl (<150)
[2023-07-14 07:32] LABS: VITAMIN D, 25-HYDROXY 20.1 ng/mL (30-100)
[2023-07-15] VITALS: BP 160/80
[2023-07-15 08:00] VITALS: BP 104/77
[2023-07-15 09:00] VITALS: BP 114/61
[2023-07-15 12:00] VITALS: BP 105/61; BP 110/76
[2023-07-15 16:00] VITALS: BP 97/71
[2023-07-15 20:00] VITALS: BP 100/62
[2023-07-16] VITALS: BP 91/68
[2023-07-16 08:00] VITALS: BP 99/66
[2023-07-16 12:00] VITALS: BP 96/63
[2023-07-16 16:00] VITALS: BP 86/50
[2023-07-16 20:00] VITALS: BP 105/74
[2023-07-17] VITALS: BP 99/56
[2023-07-17 06:48] LABS: HEMATOCRIT 46.6 % (42.0-52.0); LYMPH # 0.6 10*3/uL (1.3-4.4); LYMPH % 10.4 % (27.0-41.0); MEAN CELL VOLUME 91.2 fl (80.0-94.0); MEAN CORPUSCULAR HGB 31.7 pg (27.0-31.0); MEAN CORPUSCULAR HGB CONC 34.8 g/dl (33.0-37.0); MEAN PLATELET VOLUME 9.6 fl (9.6-12.3); MONO # 0.5 10*3/uL (0.1-1.0); MONO % 9.6 % (3.0-9.0); NEUT # 4.3 10*3/uL (2.3-7.9); NEUT % 79.6 % (47.0-73.0); PLATELET COUNT AUTOMATED 166 10*3/uL (130-400); RED BLOOD COUNT 5.11 10*6/uL (4.50-5.90); RED CELL DISTRI WIDTH 14.4 % (0-14.5); WHITE BLOOD COUNT 5.4 10*3/uL (4.8-10.8)
[2023-07-17 07:04] LABS: BUN 25 mg/dl (9-23); CHLORIDE 109 mmol/L (98-107); POTASSIUM 4.1 mmol/L (3.4-5.1)
[2023-07-17 08:00] VITALS: BP 96/72
[2023-07-17 12:00] VITALS: BP 97/68
[2023-07-17] MEDS ORDERED: DEXAMETHASONE6 MG PO (13:04)
[2023-07-17] MEDS ORDERED: VITAMIN D350 MCG PO (13:04)
[2023-07-17 16:00] VITALS: BP 92/54
[2023-07-17 20:00] VITALS: BP 95/63
[2023-07-18] VITALS: BP 94/67
[2023-07-18 08:00] VITALS: BP 100/60
[2023-07-18 12:00] VITALS: BP 99/62
== END 2023-07-18 14:55 | disposition home health service (06) | DRG 871 ==
LOC: ED 00:14 → 4E 03:09 → EDHOLD 03:09 → 4E 14:16
PROVIDERS: Internal Medicine; Student in an Organized Health Care Education/Training Program; ADMIT Family Medicine; ATTEND Family Medicine
PROC: XW033E5 Introduction of Remdesivir Anti-infective into Peripheral Vein, Percutaneous Approach, New Technology Group 5 (ICD-10-PCS; principal; 2023-07-14)
DX: A41.9 Sepsis, unspecified organism (principal); J12.82 Pneumonia due to coronavirus disease 2019; J96.01 Acute respiratory failure with hypoxia; U07.1 COVID-19; E87.20 Acidosis, unspecified; I50.32 Chronic diastolic (congestive) heart failure; R65.20 Severe sepsis without septic shock; E55.9 Vitamin D deficiency, unspecified; J44.9 Chronic obstructive pulmonary disease, unspecified; E78.5 Hyperlipidemia, unspecified; R73.9 Hyperglycemia, unspecified; F17.210 Nicotine dependence, cigarettes, uncomplicated; I48.0 Paroxysmal atrial fibrillation; I89.0 Lymphedema, not elsewhere classified; Z85.46 Personal history of malignant neoplasm of prostate; Z71.6 Tobacco abuse counseling

== ENCOUNTER 2023-10-10 16:51 | Emergency (ER) | payer OTHER ==
[~2023-10-10] VITALS: Ht 193 cm; Wt 88.0 kg
[~2023-10-10 16:51] MED LIST changes: +ASMANEX HFA13 GM INH; +DEXAMETHASONE6 MG PO; +DILTIAZEM HCL180 M1 PO; +DULCOLAX STOOL100 M1 PO; +FEXOFENADINE H180 M1 PO; +FLOMAX0.4 MG PO; +LASIX20 MG PO; +NASAL MIST30 ML NAS; +POTASSIUM CHLO20 ME3 PO; +ROXICODONE15 MG PO; +TYLENOL325 M1 PO; +VITAMIN D350 MCG PO
[2023-10-10 17:30] LABS: BASO % 0.5 % (0.0-1.0); EOS # 0.1 10*3/uL (0.0-0.4); EOS % 2.1 % (1.0-4.0); HEMATOCRIT 37.5 % (42.0-52.0); LYMPH # 0.9 10*3/uL (1.3-4.4); MEAN CELL VOLUME 98.9 fl (80.0-94.0); MEAN CORPUSCULAR HGB 31.1 pg (27.0-31.0); MEAN CORPUSCULAR HGB CONC 31.5 g/dl (33.0-37.0); MONO # 0.5 10*3/uL (0.1-1.0); MONO % 11.2 % (3.0-9.0); NEUT # 2.8 10*3/uL (2.3-7.9); NEUT % 64.7 % (47.0-73.0); PLATELET COUNT AUTOMATED 224 10*3/uL (130-400); RED BLOOD COUNT 3.79 10*6/uL (4.50-5.90); RED CELL DISTRI WIDTH 13.6 % (0-14.5); WHITE BLOOD COUNT 4.4 10*3/uL (4.8-10.8)
[2023-10-10 17:58] LABS: ALKALINE PHOSPHATASE 164 U/L (46-116); BUN 17 mg/dl (9-23); CHLORIDE 105 mmol/L (98-107); LIPASE 26 U/L (12-53); POTASSIUM 3.5 mmol/L (3.4-5.1); SGPT/ALT 42 U/L (5-49); TOTAL PROTEIN 5.6 gm/dL (6.0-8.0)
[2023-10-10 18:35] LABS: BILIRUBIN Negative (Negative); BLOOD Negative (Negative); CLARITY Clear (Clear); COLOR Dark Yellow (Yellow); GLUCOSE Negative (Negative); KETONE Trace (Negative); LEUKO ESTERASE Trace (Negative); NITRITE Negative (Negative); PH 6.5 (4.5-8.0); SPECIFIC GRAVITY 1.025 (1.001-1.030)
[2023-10-10 18:58] LABS: RBC 0-2 rbc/hpf (0-2)
[2023-10-10 18:59] LABS: BACTERIA 1+; MUCOUS 1+
== END 2023-10-10 20:02 ==
LOC: ED 16:51
PROVIDERS: Emergency Medicine
DX: D53.9 Nutritional anemia, unspecified (principal); R79.82 Elevated C-reactive protein (CRP); E43 Unspecified severe protein-calorie malnutrition; Z68.1 Body mass index [BMI] 19.9 or less, adult; J44.9 Chronic obstructive pulmonary disease, unspecified; E78.5 Hyperlipidemia, unspecified; I48.91 Unspecified atrial fibrillation; K21.9 Gastro-esophageal reflux disease without esophagitis; Z86.73 Personal history of transient ischemic attack (TIA), and cerebral infarction without residual deficits; I50.9 Heart failure, unspecified; F17.200 Nicotine dependence, unspecified, uncomplicated; Z95.5 Presence of coronary angioplasty implant and graft; Z98.890 Other specified postprocedural states; Z79.899 Other long term (current) drug therapy

== ENCOUNTER 2025-03-06 12:26 | Emergency (ER) | payer OTHER ==
[~2025-03-06] VITALS: Ht 193 cm; Wt 95.3 kg
[~2025-03-06 12:26] MED LIST changes: +AMMONIUM LACTA227 GM T; +AMOXICILLIN500 M2 PO; +BACTRIM 400-801 EACH PO; +CHOLECALCIFEROL1 GM PO; +DIGOXIN125 MCG PO; +DULERA 200 MCG-13 GM PO; +FLUDROCORTISON0.1 MG PO; +GOOD SENSE ACID20 MG PO; +KLOR-CON 1010 ME1 PO; +LACTINEX 0.2 MG1 TAB PO; +MAGNESIUM400 M1 PO; +MIDODRINE HCL5 M1 PO; +ZOLOFT100 MG PO
[2025-03-06] MEDS ORDERED: Acetaminophen/Hydrocodone HP 10/325 PO ONE (13:50)
== END 2025-03-06 16:57 | disposition short-term general hospital (02) ==
LOC: ED 12:26
DX: N40.1 Benign prostatic hyperplasia with lower urinary tract symptoms (principal); R33.8 Other retention of urine; J44.9 Chronic obstructive pulmonary disease, unspecified; K21.9 Gastro-esophageal reflux disease without esophagitis; I50.9 Heart failure, unspecified; F17.200 Nicotine dependence, unspecified, uncomplicated; Z79.899 Other long term (current) drug therapy; Z98.890 Other specified postprocedural states